=== PATIENT | male | born 1975 | race Two or more races ===

== ENCOUNTER 2019-10-22 08:48 | Emergency (ER) | payer OTHER ==
[~2019-10-22] VITALS: Ht 162.6 cm; Wt 81.8 kg
[2019-10-22] MEDS ORDERED: IBUP-2071 PO (09:20)
[2019-10-22] MEDS ORDERED: LIDOCAINE 2% 5 ML JELLY TP ONE (09:30)
[2019-10-22] MEDS ORDERED: IBUPROFEN 800 MG TABLET PO ONE (10:00)
[2019-10-22] MEDS ORDERED: LIDOCAINE/PF 1% 30 ML VIAL INJ ONE (10:45)
[2019-10-22 11:10] VITALS: BP 125/88
[2019-10-22] MEDS ORDERED: BACITRACIN 0.9 GM PACKET OINTMENT TP ONE (11:15)
== END 2019-10-22 12:02 | disposition home or self-care (01) ==
LOC: EMS 08:50
DX: S01.311A Laceration without foreign body of right ear, initial encounter (principal); W50.0XXA Accidental hit or strike by another person, initial encounter; Y93.89 Activity, other specified; Y92.89 Other specified places as the place of occurrence of the external cause; Y99.8 Other external cause status
CPT/HCPCS: 12011; 99283; J3490